=== PATIENT | female | born 1990 | race African-American/Black ===

== ENCOUNTER 2017-01-08 09:26 | Emergency (ER) | payer MEDICAID ==
[2017-01-08 10:00] LABS: BASOPHILS 0.3 % (0.0-2.0); EOSINOPHILS 1.9 % (0-7); HEMATOCRIT 36.1 % (36.0-48.0); HEMOGLOBIN 11.4 g/dL (12-16); LYMPHOCYTES 48.9 % (15-50); MCH 27.1 pg (26.0-34.0); MCHC 31.6 g/dL (31.0-37.0); MEAN PLATELET VOLUME 10.8 fL (7.4-10.4); MONOCYTES 4.4 % (2-11); NEUTROPHILS 44.5 % (40-80); PLATELET COUNT 305 10x3/uL (130-400); WBC 6.2 10x3/uL (4.8-10.8)
[2017-01-08 10:10] LABS: APPEARANCE SLT CLOUDY (CLEAR); BILIRUBIN NEGATIVE (NEGATIVE); COLOR YELLOW (YELLOW); GLUCOSE NEGATIVE (NEGATIVE); KETONE NEGATIVE (NEGATIVE); LEUKOCYTE ESTERASE TRACE (NEGATIVE); NITRITE NEGATIVE (NEGATIVE); PROTEIN NEGATIVE (NEGATIVE); SPECIFIC GRAVITY 1.005 (1.005-1.020); UROBILINOGEN NORMAL (NORMAL)
[2017-01-08 10:16] LABS: BACTERIA MODERATE /hpf (NONE SEEN); EPITHELIAL CELLS 0-5 /hpf (0-5); WHITE CELLS - URINE 0-5 /hpf (0-5)
[2017-01-08 10:22] LABS: ALBUMIN 3.4 g/dL (3.4-5.0); ALKALINE PHOSPHATASE 59 U/L (46-116); ALT (SGPT) 20 U/L (10-68); BILIRUBIN - TOTAL 0.16 mg/dL (0.2-1.3); CALC OSMOLALITY 275 mosm/kg (275-300); CALCIUM 8.2 mg/dL (8.5-10.1); CARBON DIOXIDE 27.5 mmol/L (21.0-32.0); CHLORIDE - SERUM 104 mmol/L (98-107); CREATININE - SERUM 0.6 mg/dL (0.6-1.3); GLUCOSE 92 mg/dL (74-106); LIPASE 93 U/L (73-393); POTASSIUM - SERUM 4.5 mmol/L (3.5-5.1); PROTEIN - SERUM 7.4 g/dL (6.4-8.2); SODIUM 139 mmol/L (136-145); UREA NITROGEN 8 mg/dL (7-18); eGFR NON AFRICAN AMERICAN > 90 mL/min (90-120)
== END 2017-01-08 11:05 | disposition home or self-care (01) ==
LOC: D.ER 09:26
PROVIDERS: Emergency Medicine
DX: R10.31 Right lower quadrant pain (principal); F12.10 Cannabis abuse, uncomplicated; F17.200 Nicotine dependence, unspecified, uncomplicated

== ENCOUNTER 2017-01-13 17:17 | Emergency (ER) | payer MEDICAID | END 2017-01-13 17:42 | disposition left against medical advice (07) | LOC: D.ER 17:17 | DX: Z02.9 Encounter for administrative examinations, unspecified (principal) ==

== ENCOUNTER 2017-01-22 01:43 | Emergency (ER) | payer MEDICAID ==
[2017-01-22 02:36] LABS: APPEARANCE HAZY (CLEAR); COLOR YELLOW (YELLOW); GLUCOSE NEGATIVE (NEGATIVE); KETONE NEGATIVE (NEGATIVE); LEUKOCYTE ESTERASE 1+ (NEGATIVE); NITRITE NEGATIVE (NEGATIVE); PROTEIN NEGATIVE (NEGATIVE); UROBILINOGEN NORMAL (NORMAL)
[2017-01-22 02:37] LABS: BILIRUBIN NEGATIVE (NEGATIVE)
[2017-01-22 02:38] LABS: BACTERIA FEW /hpf (NONE SEEN); EPITHELIAL CELLS 0-5 /hpf (0-5); HCG URINE NEGATIVE (NEGATIVE); MUCUS <1+ /lpf (NONE SEEN)
[2017-01-22 03:23] LABS: BASOPHILS 0.3 % (0.0-2.0); EOSINOPHILS 1.3 % (0-7); HEMATOCRIT 31.6 % (36.0-48.0); HEMOGLOBIN 10.2 g/dL (12-16); IMMATURE GRANULOCYTES 0.1 % (0-5); MCH 27.2 pg (26.0-34.0); MCHC 32.3 g/dL (31.0-37.0); MCV 84.3 fL (80.0-100.0); MEAN PLATELET VOLUME 10.6 fL (7.4-10.4); MONOCYTES 3.7 % (2-11); NEUTROPHILS 46.6 % (40-80); PLATELET COUNT 281 10x3/uL (130-400); RBC 3.75 10x6/uL (4.00-5.40); RDW 15.2 % (11.5-14.5); WBC 7.6 10x3/uL (4.8-10.8)
[2017-01-22 03:36] LABS: ALBUMIN 3.3 g/dL (3.4-5.0); ALKALINE PHOSPHATASE 56 U/L (46-116); ALT (SGPT) 17 U/L (10-68); BILIRUBIN - TOTAL 0.16 mg/dL (0.2-1.3); CALC OSMOLALITY 277 mosm/kg (275-300); CALCIUM 8.1 mg/dL (8.5-10.1); CARBON DIOXIDE 27.2 mmol/L (21.0-32.0); CHLORIDE - SERUM 104 mmol/L (98-107); CREATININE - SERUM 0.8 mg/dL (0.6-1.3); GLUCOSE 103 mg/dL (74-106); SODIUM 139 mmol/L (136-145); UREA NITROGEN 12 mg/dL (7-18); eGFR NON AFRICAN AMERICAN > 90 mL/min (90-120)
== END 2017-01-22 04:37 | disposition home or self-care (01) ==
LOC: D.ER 01:43
PROVIDERS: Emergency Medicine
DX: N23 Unspecified renal colic (principal); F17.200 Nicotine dependence, unspecified, uncomplicated

== ENCOUNTER 2017-11-15 07:41 | Emergency (ER) | payer SELFPAY ==
[2017-11-15 08:47] LABS: APPEARANCE SLT CLOUDY (CLEAR); BILIRUBIN NEGATIVE (NEGATIVE); COLOR YELLOW (YELLOW); GLUCOSE NEGATIVE (NEGATIVE); KETONE NEGATIVE (NEGATIVE); NITRITE NEGATIVE (NEGATIVE); PROTEIN TRACE mg/dL (NEGATIVE); UROBILINOGEN NORMAL (NORMAL)
[2017-11-15 08:48] LABS: BACTERIA MANY /hpf (NONE SEEN); EPITHELIAL CELLS 0-5 /hpf (0-5); MUCUS <1+ /lpf (NONE SEEN); WHITE CELLS - URINE 25-50 /hpf (0-5)
== END 2017-11-15 08:45 | disposition home or self-care (01) ==
LOC: D.ER 07:41
PROVIDERS: Emergency Medicine
DX: M54.9 Dorsalgia, unspecified (principal); F12.90 Cannabis use, unspecified, uncomplicated

== ENCOUNTER 2017-12-05 16:30 | Emergency (ER) | payer SELFPAY | END 2017-12-05 16:40 | disposition left against medical advice (07) | LOC: D.ER 16:30 | DX: S69.92XA Unspecified injury of left wrist, hand and finger(s), initial encounter (principal); X58.XXXA Exposure to other specified factors, initial encounter; Y93.89 Activity, other specified; Y92.89 Other specified places as the place of occurrence of the external cause ==

== ENCOUNTER 2018-12-16 18:36 | Emergency (ER) | payer MEDICAID ==
[~2018-12-16] VITALS: Ht 162.6 cm; Wt 113.4 kg
[2018-12-16 19:17] VITALS: Ht 162.6 cm; Wt 113.4 kg
[2018-12-16] MEDS ORDERED: PHENERGAN DM SYR5 ML PO (20:15)
[2018-12-16] MEDS ORDERED: TAMIFLU75 MG PO (20:15)
[2018-12-16 21:27] VITALS: BP 116/66
== END 2018-12-16 21:27 | disposition home or self-care (01) ==
LOC: D.ER 18:36
DX: J11.1 Influenza due to unidentified influenza virus with other respiratory manifestations (principal); R50.9 Fever, unspecified; J06.9 Acute upper respiratory infection, unspecified; R05 Cough

== ENCOUNTER 2019-01-28 10:31 | Emergency (ER) | payer MEDICAID ==
[~2019-01-28] VITALS: Ht 162.6 cm; Wt 125.0 kg
[~2019-01-28 10:31] MED LIST: PHENERGAN DM SYR5 ML PO; TAMIFLU75 MG PO
[2019-01-28 10:36] VITALS: Ht 162.6 cm; Wt 125.0 kg
[2019-01-28] MEDS ORDERED: NIZORAL 2 % SH120 ML TOPICAL (11:07)
[2019-01-28] MEDS ORDERED: NYSTATIN15 GM TOPICAL (11:07)
[2019-01-28 11:27] VITALS: BP 124/60
== END 2019-01-28 11:28 | disposition home or self-care (01) ==
LOC: D.ER 10:31
DX: L21.9 Seborrheic dermatitis, unspecified (principal)

== ENCOUNTER 2019-02-10 07:41 | Emergency (ER) | payer MEDICAID ==
[~2019-02-10 07:41] MED LIST changes: +NIZORAL 2 % SH120 ML TOPICAL; +NYSTATIN15 GM TOPICAL
[2019-02-10 08:03] VITALS: BMI 47.3
[2019-02-10] MEDS ORDERED: HYDROCODON-ACE1 EAC2 PO (08:34)
[2019-02-10] MEDS ORDERED: VALIUM10 MG PO (08:34)
[2019-02-10 09:01] VITALS: BP 122/43
== END 2019-02-10 09:02 | disposition home or self-care (01) ==
LOC: D.ER 07:41
DX: M54.2 Cervicalgia (principal); M54.6 Pain in thoracic spine

== ENCOUNTER 2019-03-12 10:13 | Emergency (ER) | payer MEDICAID ==
[~2019-03-12] VITALS: Ht 162.6 cm; Wt 136.1 kg
[~2019-03-12 10:13] MED LIST changes: +HYDROCODON-ACE1 EAC2 PO; +VALIUM10 MG PO
[2019-03-12 10:16] VITALS: Ht 162.6 cm; Wt 136.1 kg
[2019-03-12 10:52] LABS: HCG SERUM NEGATIVE (NEGATIVE)
[2019-03-12 10:55] LABS: ALBUMIN 3.4 g/dL (3.4-5.0); ALKALINE PHOSPHATASE 52 U/L (46-116); ALT (SGPT) 19 U/L (10-68); BILIRUBIN - TOTAL 0.22 mg/dL (0.2-1.3); CALC OSMOLALITY 279 mosm/kg (275-300); CALCIUM 8.1 mg/dL (8.5-10.1); CARBON DIOXIDE 28.6 mmol/L (21.0-32.0); CHLORIDE - SERUM 105 mmol/L (98-107); CREATININE - SERUM 0.7 mg/dL (0.6-1.3); GLUCOSE 93 mg/dL (74-106); POTASSIUM - SERUM 3.8 mmol/L (3.5-5.1); PROTEIN - SERUM 7.1 g/dL (6.4-8.2); SODIUM 141 mmol/L (136-145); UREA NITROGEN 9 mg/dL (7-18); eGFR NON AFRICAN AMERICAN > 90 mL/min (90-120)
[2019-03-12 10:57] LABS: APPEARANCE CLEAR (CLEAR); BILIRUBIN NEGATIVE (NEGATIVE); COLOR YELLOW (YELLOW); GLUCOSE NEGATIVE (NEGATIVE); KETONE NEGATIVE (NEGATIVE); NITRITE NEGATIVE (NEGATIVE); PROTEIN NEGATIVE (NEGATIVE); SPECIFIC GRAVITY 1.015 (1.005-1.020); UROBILINOGEN NORMAL (NORMAL)
[2019-03-12 10:58] LABS: AMYLASE - SERUM 67 U/L (25-115); LIPASE 81 U/L (73-393); TROPONIN-I < 0.017 ng/mL (0.000-0.060)
[2019-03-12 11:08] LABS: HEMATOCRIT 33.3 % (36.0-48.0); HEMOGLOBIN 10.9 g/dL (12-16); MCH 29.5 pg (26.0-34.0); MCHC 32.7 g/dL (31.0-37.0); MCV 90.2 fL (80.0-100.0); MEAN PLATELET VOLUME 10.1 fL (7.4-10.4); PLATELET COUNT 287 10x3/uL (130-400); RBC 3.69 10x6/uL (4.00-5.40); RDW 14.6 % (11.5-14.5); WBC 5.4 10x3/uL (4.8-10.8)
[2019-03-12 11:39] LABS: EOSINOPHILS 2 % (0-7); HYPOCHROMASIA OCC; LYMPHOCYTES 55 % (15-50); MONOCYTES 9 % (2-11); NEUTROPHILS 32 % (40-80); PLATELET ESTIMATE NORMAL
[2019-03-12] MEDS ORDERED: VOLTAREN75 MG PO (12:30)
[2019-03-12 12:40] VITALS: BP 124/86
== END 2019-03-12 12:41 | disposition home or self-care (01) ==
LOC: D.ER 10:13
PROVIDERS: Emergency Medicine
DX: M79.18 Myalgia, other site (principal)

== ENCOUNTER 2019-05-12 03:56 | Emergency (ER) | payer MEDICAID ==
[~2019-05-12] VITALS: Ht 162.6 cm; Wt 100.0 kg
[~2019-05-12 03:56] MED LIST changes: +VOLTAREN75 MG PO
[2019-05-12 04:11] VITALS: Ht 162.6 cm; Wt 100.0 kg
[2019-05-12] MEDS ORDERED: KEFLEX500 MG PO (04:27)
[2019-05-12] MEDS ORDERED: HYDROCODON-ACE1 EA10 PO (04:28)
[2019-05-12 04:51] VITALS: BP 101/58
== END 2019-05-12 04:52 | disposition home or self-care (01) ==
LOC: D.ER 03:56
DX: K02.9 Dental caries, unspecified (principal); K08.89 Other specified disorders of teeth and supporting structures